=== PATIENT | female | born 1940 | race Caucasian/White ===

== ENCOUNTER 2021-01-13 14:59 | Emergency (ER) | payer MEDICARE ==
[2021-01-13 16:47] LABS: EOSINOPHIL 3.2 % (0-7); HCT 40.5 % (37.0-47.0); HGB 13.5 g/dl (12.5-16.0); LYMPHOCYTE 27.5 % (15-48); MCH 31.9 pg (25.0-31.0); MCHC 33.3 g/dL (32.0-36.0); MCV 95.7 fL (78.0-100.0); MONOCYTE 11.2 % (0-12); MPV 11.2 fL (6.0-9.5); NEUTROPHIL 56.8 % (41-80); NRBC 0; PLT 155 K/uL (150-400); RBC 4.23 M/uL (4.20-5.40); RDW 12.8 % (11.5-14.0)
[2021-01-13 17:06] LABS: BILIRUBIN - TOTAL 0.5 mg/dL (0.2-1.0); BUN/CREAT RATIO (CALC) 33.9 RATIO; CREATININE 0.56 mg/dL (0.51-0.95); GLOBULIN (CALCULATION) 3.7 g/dL; TOTAL PROTEIN 7.7 g/dL (6.4-8.2)
== END 2021-01-13 18:45 | disposition home or self-care (01) ==
LOC: FER 14:59
PROVIDERS: Emergency Medicine
DX: R53.1 Weakness (principal); R42 Dizziness and giddiness; R55 Syncope and collapse; I10 Essential (primary) hypertension; E78.5 Hyperlipidemia, unspecified
CPT/HCPCS: 36415; 70450; 80053; 84443; 84484; 85025; 93005